=== PATIENT | female | born 1990 | race Asian ===

== ENCOUNTER 2021-08-11 00:31 | Inpatient (IN) ==
[2021-08-11] MEDS ORDERED: Nalbuphine 10 MG/ML 1 ML VIAL IM ONE (03:00)
[2021-08-11] MEDS ORDERED: Promethazine INJ(RESTRICTED) 25 MG/ML 1 ml VIAL IM ONE (03:00)
[2021-08-11] MEDS ORDERED: Buffered Lidocaine 1% SYRIN 1 ml INTRADERM ONE (07:49)
[2021-08-11] MEDS ORDERED: Lactated Ringers 1000 ml BAG 1,000 ML IV ONE ×2 (07:49→10:55)
[2021-08-11] MEDS ORDERED: Lactated Ringers 1000 ml BAG 1,000 ML IV SCH ×4 (08:00→19:00)
[2021-08-11 08:35] LABS: ABS Lymphocytes 1.4 10^3/ul (1.0-4.8); ABS Monocytes 0.5 10^3/ul (0-0.8); ABS Neutrophils 6.2 10^3/ul (1.5-7.7); Eosinophil % 0.6 %; Hematocrit 37 % (35-47); Hemoglobin 12.4 g/dL (12.0-16.0); Lymphocyte % 17.7 %; Mean Corpuscular HGB Conc 34 g/dL (31-36); Mean Corpuscular Hemoglobin 33 pg (27-31); Mean Corpuscular Volume 98 fL (80-97); Mean Platelet Volume 10.2 fL (7.4-10.4); Platelet Count 129 10^3/uL (150-450); Red Blood Count 3.78 10^6 /uL (3.70-4.87); Red Cell Distribution Width 13 % (10-15); White Blood Count 8.2 10^3/uL (3.5-10.8)
[2021-08-11] MEDS ORDERED: OBEPIDURAL (200 ML) 200 ML EPIDURAL ONE (10:29)
[2021-08-11] MEDS ORDERED: Sodium Citrate/Citric Acid LIQ 15 ML UDC PO PRN (10:55)
[2021-08-11] MEDS ORDERED: Lactated Ringers 1000 ml BAG 500 ML IV PRN (10:55)
[2021-08-11] MEDS ORDERED: Phenylephrine 40 mcg/mL 10mL (400mcg) SYRINGE IV PUSH PRN ×2 (10:55)
[2021-08-11] MEDS ORDERED: EPHEDrine (Pressors) 50 MG/ML VIAL IV PUSH PRN ×2 (10:55)
[2021-08-11] MEDS ORDERED: OBEPIDURAL (200 ML) 200 ML EPIDURAL SCH (11:00)
[2021-08-11 12:05] LABS: Urine Benzodiazepine Screen None Detected (None Detect); Urine Cannabinoids Screen None Detected (None Detect); Urine Opiates Screen None Detected (None Detect)
[2021-08-11 12:41] LABS: Urine Appearance Clear; Urine Bilirubin Negative (Negative); Urine Blood 2+ (Negative); Urine Color Straw; Urine Glucose Negative (Negative); Urine Ketones Negative (Negative); Urine Nitrite Negative (Negative); Urine Protein Negative (Negative); Urine Specific Gravity 1.003 (1.002-1.030); Urine Urobilinogen Negative (Negative)
[2021-08-11 12:54] LABS: Urine Bacteria Absent (Absent); Urine Red Blood Cell Trace(0-2/hpf) (Absent); Urine Squamous Epithelial Cell Present (Absent); Urine White Blood Cell Absent (Absent)
[2021-08-11] MEDS ORDERED: Oxytocin in LR 20 UNITS/1,000 ML BAG IVPB ONE (14:30)
[2021-08-11] MEDS ORDERED: Oxytocin 10 UNITS/ML 1 ML VIAL ONE (18:00)
[2021-08-11] MEDS ORDERED: Lidocaine 1% VIAL 10 MG/ML VIAL ONE (18:00)
[2021-08-11] MEDS ORDERED: Dibucaine 1% OINT 28.35 GM TUBE PR PRN (18:15)
[2021-08-11] MEDS ORDERED: Glycerin ADULT 2.4 gm SUPP PR PRN (18:15)
[2021-08-11] MEDS ORDERED: Oxytocin 10 UNITS/ML 1 ML VIAL IM ONE (18:15)
[2021-08-11] MEDS ORDERED: Oxytocin in LR 20 UNITS/1,000 ML BAG IVPB SCH (19:00)
[2021-08-11] MEDS: Witch Hazel PAD JAR TOPICAL PRN (21:21)
[2021-08-12 05:51] LABS: ABS Eosinophils 0.1 10^3/ul (0-0.6); ABS Lymphocytes 1.7 10^3/ul (1.0-4.8); ABS Monocytes 0.5 10^3/ul (0-0.8); ABS Neutrophils 6.9 10^3/ul (1.5-7.7); Eosinophil % 0.5 %; Hematocrit 30 % (35-47); Hemoglobin 10.4 g/dL (12.0-16.0); Lymphocyte % 18.9 %; Mean Corpuscular HGB Conc 34 g/dL (31-36); Mean Corpuscular Hemoglobin 33 pg (27-31); Mean Corpuscular Volume 97 fL (80-97); Mean Platelet Volume 9.9 fL (7.4-10.4); Nucleated Red Blood Cells % 0.1; Platelet Count 112 10^3/uL (150-450); Red Blood Count 3.14 10^6 /uL (3.70-4.87); Red Cell Distribution Width 13 % (10-15); White Blood Count 9.2 10^3/uL (3.5-10.8)
[2021-08-12] MEDS: Witch Hazel PAD JAR TOPICAL PRN (12:18)
[2021-08-13 09:01] VITALS: BP 105/65
== END 2021-08-13 14:46 | disposition home or self-care (01) | DRG 560 ==
LOC: MCHOBOUT 00:31 → MCHOB 03:09
PROVIDERS: ADMIT Obstetrics & Gynecology; ATTEND Obstetrics & Gynecology